=== PATIENT | male | born 1995 | race African-American/Black ===

== ENCOUNTER 2019-04-09 21:30 | Emergency (ER) | payer SELFPAY ==
[2019-04-10 01:05] VITALS: BP 146/83
--- NOTE | 2019-04-10 01:21 | ER Document Report ---
HPI - HPI Time Seen by Provider: 04/10/19 01:17 Pain Level: 4 Context: Patient is a 23-year-old male that comes to the emergency department for chief complaint of sinus congestion, ear pain on both sides, sore throat, and a mild developing cough today. He states he also had some bleeding from his nose which quickly resolved and then he coughed out a small amount of blood. He denies shortness of breath or chest pain. He denies fever/chills. He denies headache or vomiting. He denies any daily medications or diagnosed past medical history, he smokes occasional black and milds, denies recreational drugs. Past Medical History - General Information source: Patient - Social History Smoking Status: Never Smoker Drug Abuse: None Lives with: Alone Family History: Reviewed & Not Pertinent - Medical History Medical History: Negative Surgical Hx: Negative - Immunizations Immunizations up to date: Yes Hx Diphtheria, Pertussis, Tetanus Vaccination: Yes Vertical Provider Document - CONSTITUTIONAL General Appearance: WD/WN, No Apparent Distress - INFECTION CONTROL TRAVEL OUTSIDE OF THE [place] IN LAST 30 DAYS: No - HEENT HEENT: Atraumatic, Normocephalic, PERRLA. negative: Conjuctival Injection, Normal ENT Exam - Sinus congestion, postnasal drainage noted, oropharyngeal exam unremarkable otherwise, sinuses unremarkable. Right sided serous effusion noted behind the tympanic membrane but ear exam otherwise unremarkable, left-sided otitis media noted with erythema, dullness of the tympanic membrane. Normal mastoids. - NECK Neck: Normal Inspection. negative: Lymphadenopathy-Left, Lymphadenopathy-Right - RESPIRATORY Respiratory: Breath Sounds Normal, No Respiratory Distress - CARDIOVASCULAR Cardiovascular: Regular Rate, Regular Rhythm - GI/ABDOMEN Gastrointestinal: Abdomen Soft, Abdomen Non-Tender - BACK Back: Normal Inspection - MUSCULOSKELETAL/EXTREMETIES Musculoskeletal/Extremeties: MAEW, FROM, Non-Tender - NEURO Level of Consciousness: Awake, Alert, Appropriate Motor/Sensory: No Motor Deficit, No Sensory Deficit - DERM Integumentary: Warm, Dry, No Rash Course - Re-evaluation Re-evalutation: Patient with nasal congestion, left-sided otitis media, right-sided serous effusion, postnasal drip. Otherwise completely unremarkable exam, clear lungs, well-appearing patient. Discussed treatment options, discussed follow-up, expectation, return precautions. Patient states understanding and agreement. - Vital Signs Vital signs: Temp Pulse Resp BP Pulse Ox 98.4 F 65 18 146/83 H 99 04/10/19 01:04 04/10/19 01:04 04/09/19 21:53 04/10/19 01:04 04/10/19 01:04 Discharge - Discharge Clinical Impression: Sinus congestion, Cough Otitis media Qualifiers: Otitis media type: suppurative Chronicity: acute Laterality: right Recurrence: non-recurrent Spontaneous tympanic membrane rupture: without spontaneous rupture Qualified Code(s): H66.001 - Acute suppurative otitis media without spontaneous rupture of ear drum, right ear Pharyngitis Qualifiers: Pharyngitis/tonsillitis etiology: unspecified etiology Qualified Code(s): J02.9 - Acute pharyngitis, unspecified Condition: Stable Disposition: HOME, SELF-CARE Additional Instructions: Your evaluation is consistent with probably a viral upper respiratory infection and now developing secondary left ear infection and worsening sinus congestion with drainage. This should gradually resolve with time. I recommend the antibiotic as prescribed, the nasal spray and decongestant as prescribed, you can also take [id number] ibuprofen for pain and antihistamines such as Benadryl at night to reduce drainage symptoms. Follow-up with primary care. Return if you worsen including fever, difficulty breathing, severe headache, swelling at the ear, or any other concerning or worsening symptoms. Prescriptions: Amoxicillin Trihydrate [Amoxil 500 mg Capsule] 1,000 mg PO BID 7 Days #28 capsule Fluticasone Propionate [Flonase Nasal [place] 50 Mcg/[place] 16 gm] 2 sprays NASL Q12 #1 inhaler Pseudoephedrine HCl [Sudafed 12 Hour] 120 mg PO Q12 PRN #14 tablet.er PRN Reason: Forms: Return to Work
== END 2019-04-10 01:28 | disposition home or self-care (01) ==
LOC: ER 21:30
DX: H66.001 Acute suppurative otitis media without spontaneous rupture of ear drum, right ear (principal); J02.9 Acute pharyngitis, unspecified; R09.81 Nasal congestion; R05 Cough
CPT/HCPCS: 99283